=== PATIENT | male | born 1950 | race Caucasian/White ===

== ENCOUNTER → 2019-05-25 | Outpatient (CLI) | payer MEDICARE ==
--- NOTE | 2019-05-26 10:27 | P.ARTDOP ---
Arterial Doppler LOWER EXTREMITY ARTERIAL DOPPLER: DATE OF SERVICE: 05/25/2019 Reason for study: Bilateral leg pain thigh down. Doppler waveforms: Multiphasic throughout on the right. Multiphasic throughout on the left but with blunted digital waveform.. Pulse volume recording: []. Pressure gradients: Below the knee on the right and above the low thigh on the left. Ankle-brachial indices: 0.91 on the right and 0.61 on the left. Toe brachial indices: 0.45 on the right, 0.28 on the left Impression: Mild right infrapopliteal disease. Moderate left femoral popliteal disease. Clinical correlation recommended. Does not directly correlate with symptoms pattern.
== END | disposition home or self-care (01) ==
LOC: RADUSWWP 12:18
PROVIDERS: ATTEND Family Medicine
DX: I73.9 Peripheral vascular disease, unspecified (principal); E11.9 Type 2 diabetes mellitus without complications
CPT/HCPCS: 93923